=== PATIENT | female | born 1995 | race Caucasian/White ===

== ENCOUNTER → 2022-01-31 | Outpatient (CLI) | payer OTHER ==
[2022-01-31 15:35] VITALS: BP 120/67
[2022-01-31 15:47] LABS: APPEARANCE, CSF CLEAR (CLEAR); COLOR, CSF COLORLESS (COLORLESS); CSF TUBE# CELL CNT TUBE 3
[2022-01-31 17:00] LABS: CSF TUBE# GLU TUBE 1; CSF TUBE# TP TUBE 1; GLUCOSE CSF 60 MG/DL (40-75); TOTAL PROTEIN,CSF 35 MG/DL (15-45)
== END ==
LOC: M IRPRO 13:35
PROVIDERS: ATTEND Psychiatry & Neurology Neurology
DX: H47.10 Unspecified papilledema (principal)

== ENCOUNTER → 2023-11-19 | Outpatient (REF) | payer OTHER | LOC: M PLALAB 18:10 | PROVIDERS: ATTEND Advanced Practice Midwife | DX: O26.899 Other specified pregnancy related conditions, unspecified trimester (principal); Z3A.00 Weeks of gestation of pregnancy not specified ==

== ENCOUNTER → 2023-11-20 | Outpatient (CLI) | payer BC, OTHER, SELFPAY ==
[2023-11-20 14:26] LABS: HEMATOCRIT 39.2 % (36.0-47.0); HEMOGLOBIN 13.3 g/dl (12.0-15.5); MEAN CORPUSCULAR HGB CONC 33.9 g/dl (32.0-36.5); MEAN CORPUSCULAR VOLUME 88.5 fl (80.0-96.0); PLATELET COUNT, AUTOMATED 279 10^3/uL (150-450); RED BLOOD COUNT 4.43 10^6/uL (4.00-5.40)
[2023-11-20 14:59] LABS: HEMOGLOBIN A1c 4.7 % (4.0-6.0)
[2023-11-20 15:04] LABS: VITAMIN B12 LEVEL 260 PG/ML (211-911)
[2023-11-20 15:05] LABS: FOLATE 20.03 NG/ML (>5.4); TOTAL 25(OH) VITAMIN D 28.7 NG/ML (20.0-100.0)
[2023-11-20 15:25] LABS: HIV 1&2 SCREEN NEGATIVE (NEGATIVE)
[2023-11-20 15:34] LABS: HEPATITIS C VIRUS ABY INDEX 0.03 INDEX (<0.8)
[2023-11-20 15:58] LABS: GC DNA AMPLIFICATION NEGATIVE (NEGATIVE)
== END ==
LOC: M PLALAB 10:49
PROVIDERS: ATTEND Advanced Practice Midwife
DX: Z34.81 Encounter for supervision of other normal pregnancy, first trimester (principal)

== ENCOUNTER → 2023-12-19 | Outpatient (CLI) | payer BC | LOC: M PLALAB 08:38 | PROVIDERS: ATTEND Advanced Practice Midwife | DX: O99.841 Bariatric surgery status complicating pregnancy, first trimester (principal); Z3A.12 12 weeks gestation of pregnancy ==

== ENCOUNTER → 2024-04-09 | Outpatient (CLI) | payer BC ==
[2024-04-09 10:18] LABS: HEMOGLOBIN 11.3 g/dl (12.0-15.5); MEAN CORPUSCULAR HEMOGLOBIN 31.7 pg (27.0-33.0); MEAN CORPUSCULAR HGB CONC 34.2 g/dl (32.0-36.5); MEAN CORPUSCULAR VOLUME 92.7 fl (80.0-96.0); PLATELET COUNT, AUTOMATED 215 10^3/uL (150-450); RED BLOOD COUNT 3.56 10^6/uL (4.00-5.40); WHITE BLOOD COUNT 6.4 10^3/uL (4.0-10.0)
[2024-04-09 10:23] LABS: TOTAL 25(OH) VITAMIN D 32.1 NG/ML (20.0-100.0)
[2024-04-09 10:25] LABS: VITAMIN B12 LEVEL 176 PG/ML (211-911)
[2024-04-09 10:33] LABS: FOLATE 6.51 NG/ML (>5.4)
[2024-04-09 10:48] LABS: HIV 1&2 SCREEN NEGATIVE (NEGATIVE)
[2024-04-09 10:56] LABS: HEPATITIS C VIRUS ABY INDEX 0.03 INDEX (<0.8)
[2024-04-09 11:58] LABS: GC DNA AMPLIFICATION NEGATIVE (NEGATIVE)
== END ==
LOC: M PLALAB 07:20
PROVIDERS: ATTEND Obstetrics & Gynecology
DX: Z34.92 Encounter for supervision of normal pregnancy, unspecified, second trimester (principal)

== ENCOUNTER → 2024-04-13 | Outpatient (CLI) | payer BC ==
[2024-04-13 11:31] LABS: BILIRUBIN,TOTAL 0.4 MG/DL (0.3-1.2)
== END ==
LOC: M PLALAB 09:01
PROVIDERS: ATTEND Obstetrics & Gynecology
DX: R76.0 Raised antibody titer (principal)

== ENCOUNTER → 2024-06-03 | Outpatient (REF) | payer BC | LOC: M SFHCWAGY 09:45 | PROVIDERS: ATTEND Advanced Practice Midwife | DX: Z36.85 Encounter for antenatal screening for Streptococcus B (principal); O99.843 Bariatric surgery status complicating pregnancy, third trimester ==

== ENCOUNTER → 2025-01-05 | Outpatient (REF) | payer BC ==
[~2025-01-05] MED LIST: HYDR50TA70 PO; PREN1TAB11 PO
[2025-01-07 14:24] LABS: HPV APTIMA Not Detected (Not Detected)
== END ==
LOC: M PLALAB 08:43
PROVIDERS: ATTEND Advanced Practice Midwife
DX: Z12.4 Encounter for screening for malignant neoplasm of cervix (principal)

== ENCOUNTER → 2025-06-27 | Outpatient (REF) | payer BC ==
[2025-06-27 21:53] LABS: Trichomonas vaginalis (AMP) NOT DETECTED (NEGATIVE)
[2025-06-27 22:17] LABS: GC DNA AMPLIFICATION NEGATIVE (NEGATIVE)
== END ==
LOC: M LAB REF 20:28
PROVIDERS: ATTEND Advanced Practice Midwife
DX: Z11.3 Encounter for screening for infections with a predominantly sexual mode of transmission (principal)

== ENCOUNTER → 2025-06-27 | Outpatient (CLI) | payer BC | LOC: M LAB 19:41 | PROVIDERS: ATTEND Advanced Practice Midwife | DX: Z11.3 Encounter for screening for infections with a predominantly sexual mode of transmission (principal); Z53.9 Procedure and treatment not carried out, unspecified reason ==